=== PATIENT | male | born 1985 | race Hispanic/Latino ===

== ENCOUNTER 2022-12-22 09:17 | Observation (INO) | payer OTHER ==
--- OUTSIDE RECORDS SUMMARY | 2022-12-22 09:35 | XMS REPORT | Continuity of Care Document ---
:1985 Author Organization [facility] t Address [address] [facility] [address] [place] [address] Care Team Providers Name Role Phone SHIRLEY BRISENO Primary Care Physician Unavailable Tomek_T Attending Clinician Unavailable Acacia Savaeg Attending Clinician Unavailable FREDDIE ALFARO Attending Clinician Unavailable DR SHIRLEY BRISENO Attending Clinician Unavailable [phone] Attending Clinician Unavailable Tomsarah_T Admitting Clinician Unavailable Acacia Savage Admitting Clinician Unavailable DR SHIRLEY BRISENO Admitting Clinician Unavailable Payers Payer Name Policy Type Policy Number Effective Date Expiration Date [facility] [id number] Problems This patient has no known problems. Allergies, Adverse Reactions, Alerts Allergy Allergy Status Severity Reaction(s) Onset Inactive Treating Comm ents Source Name Type Date Date Clinician CEFTRIAX DA Active SEVERE Diarrhea El ONE [facility] Medications This patient has no known medications. Procedures This patient has no known procedures. Encounters Start End Encounter Admission Attending Care Care Encounter Source Date/Time Date/Time Type Type Clinicians Facility Department ID 2022 Outpatient ELCAMPO ELCAMPO [id number] El 08:42:32 [id number] [facility] 2022-12-03 Outpatient ELCAMPO ELCAMPO [id number] El 12:35:48 [id number] [facility] 2022-12-21 2022-12-21 Outpatient Tomek_T MMG MMG [id number] [place] 00:00:00 00:00:00 [id number] 2022-12-17 2022-12-17 Outpatient Tomek_T MMG [id number] [place] 00:00:00 00:00:00 [id number] 2022-12-12 2022-12-14 Inpatient ER Savage, [facility] [id number] [place] 01:21:00 11:44:00 Acacia [id number] [facility] 2022-12-11 2022-12-11 Emergency ER ANGELINA, [facility] [id number] [place] 22:02:00 22:02:00 FREDDIE [id number] [facility] 2022-12-03 2022-12-03 Outpatient SHIRLEY ALLRED [facility] [id number] 12:43:00 13:30:00 [id number] [facility] Results This patient has no known results.
[2022-12-22 10:19] LABS: Absolute Lymphocytes (CBC) 2.9 K/uL (0.7-4.9); Hematocrit 40.9 % (39.6-49.0); Lymphocytes % 25.8 % (15.3-44.8); MPV 7.9 fL (7.6-11.3); RBC Red Blood Cell Count 4.65 M/uL (4.33-5.43)
[2022-12-22 10:23] LABS: Protime INR 0.95
[2022-12-22 10:39] LABS: Albumin 3.1 g/dL (3.4-5.0); Bilirubin Total 0.4 mg/dL (0.2-1.0); Potassium 4.1 mEq/L (3.5-5.1); Protein, Total 8.4 g/dL (6.4-8.2)
--- NOTE | 2022-12-22 11:32 | RAD REPORT ---
EXAM DESCRIPTION: CT - Abdomen Pelvis W Contrast - 12/22/2022 10:36 am CLINICAL HISTORY: Abdominal pain COMPARISON: none. TECHNIQUE: Computed axial tomography of the abdomen pelvis was obtained. 100 cc Isovue-300 was admin istered intravenously. Oral contrast was not requested which limits evaluation of bowel and appendix All CT scans are performed using dose optimization technique as appropriate and may include automated exposure control or mA/KV adjustment according to patient size. FINDINGS: The liver, spleen, pancreas, adrenal and kidneys appear unremarkable. There is no evidence of diverticulitis. Gonzalez catheter within the bladder. Right and left external iliac lymph nodes 14 millimeters. Mild to moderate bilateral inguinal lymphad enopathy Small inguinal hernias contain fat Scrotal skin thickening IMPRESSION: Scrotal skin thickening presumably a cellulitis External iliac and inguinal lymphadenopathy most likely reactive in nature. The inguinal lymphadenopa thy should be monitored with physical examination over time. If it does not resolve then followup ult rasound would be recommended
--- NOTE | 2022-12-22 11:35 | RAD REPORT ---
EXAM DESCRIPTION: US - Scrotum Testicles - 12/22/2022 11:15 am CLINICAL HISTORY: Testicular pain and swelling COMPARISON: None FINDINGS: Right testicle measures 3 x 2 x 3 centimeters. Echotexture is homogeneous. Normal blood fl ow Left testicle measures c 4 x 2 x 2 entimeters. Echotexture is homogeneous. Normal blood flow The epididymides are normal in size and echotexture. Normal blood flow is seen. 3 millimeter right sp ermatocele Scrotal skin thickening with increased vascularity IMPRESSION: Scrotal skin thickening presumably a cellulitis
[2022-12-22 11:39] LABS: Urine Bilirubin NEGATIVE (Negative); Urine Blood Negative (Negative); Urine Clarity Clear (Clear); Urine Color Colorless (Yellow); Urine Glucose NEGATIVE (Negative); Urine Protein NEGATIVE (Negative); Urine Urobilinogen Normal (Normal); Urine pH 6.5 (5.0-7.0)
[2022-12-22] MEDS ORDERED: NA CHLORIDE 0.9% 250 ML ONE ×2 (11:51→20:41)
[2022-12-22] MEDS ORDERED: NA CHLORIDE 0.9% 100 ML ONE (11:51)
[2022-12-22] MEDS ORDERED: VANCOMYCIN 1 GM/VIAL ONE ×2 (11:51→20:41)
--- NOTE | 2022-12-22 11:51 | ER ---
Nurse's Notes [facility] Name: Mello Alcocer Age: 37 yrs Sex: Male : 1985 Arrival Date: 12/22/2022 Time: 09:17 Bed 14 Private MD: Diagnosis: Scrotal cellulitis Presentation: 12/22 09:28 Chief complaint: Patient states: DX with cellulitits at [facility] [place] 10 ss days ago and given Clindamycin. Pt is here today because it does not seem to be improving, and is now having trouble urinating. Pt states he believe he may need a urologist and [facility] does not have that specialty. Coronavirus screen: Client denies travel out of the [place] in the last 14 days. Ebola Screen: Patient denies exposure to infectious person. Patient denies travel to an Ebola-affected area in the 21 days before illness onset. Initial Sepsis Screen: Does the patient meet any 2 criteria? No. Patient's initial sepsis screen is negative. Does the patient have a suspected source of infection? No. Patient's initial sepsis screen is negative. Risk Assessment: Do you want to hurt yourself or someone else? Patient reports no desire to harm self or others. Onset of symptoms was December 08, 2022. 09:28 Method Of Arrival: Ambulatory ss 09:28 Acuity: ANAHI 3 ss Historical: - Allergies: 09:32 No Known Allergies; ss - Home Meds: 09:32 Clindamycin Oral [Active]; ss - PSHx: 09:32 Appendectomy; ss - Immunization history:: Client reports receiving the 2nd dose of the Covid vaccine. - Social history:: Smoking status: Patient reports the use of cigarette tobacco products, smokes one-half pack cigarettes per day. - Family history:: not pertinent. - Hospitalizations: : Patient was recently seen at. Screenin:31 [facility] ED Fall Risk Assessment (Adult) History of falling in the last 3 months, kc6 including since admission No falls in past 3 months (0 pts) Confusion or Disorientation No (0 pts) Intoxicated or Sedated No (0 pts) Impaired Gait No (0 pts) Mobility Assist Device Used No (0 pt) Altered Elimination No (0 pt) Score/Fall Risk Level 0 - 2 = Low Risk Oriented to surroundings, Maintained a safe environment, Educated pt \T\ family on fall prevention, incl call for assistance when getting out of bed, Assessed \T\ reinforced patient's understanding of fall precautions, Hourly rounding (assess needs \T\ fall precautionary measures) done. Abuse screen: Denies threats or abuse. Denies injuries from another. Nutritional screening: No deficits noted. Tuberculosis screening: No symptoms or risk factors identified. Assessment: 10:32 General: Appears in no apparent distress. comfortable, Behavior is calm, cooperative, kc6 appropriate for age. Pain: Complains of pain in scrotum, penis Pain does not radiate. Neuro: Hernández Agitation-Sedation Scale (RASS): 0 - Alert and Calm Level of Consciousness is awake, alert, obeys commands, Oriented to person, place, time, situation, Appropriate for age. Cardiovascular: Heart tones S1 S2 present Capillary refill < 3 seconds. Respiratory: Airway is patent Trachea midline Respiratory effort is even, unlabored, Respiratory pattern is regular, symmetrical. GI: No signs and/or symptoms were reported involving the gastrointestinal system. : Urine is clear, Swelling noted at urinary meatus on penis on scrotum Reports inability to void, Scrotal pain: sudden onset. EENT: No signs and/or symptoms were reported regarding the EENT system. Derm: No signs and/or symptoms reported regarding the dermatologic system. Skin is intact, Skin is pink, warm \T\ dry. Musculoskeletal: No signs and/or symptoms reported regarding the musculoskeletal system. Circulation, motion, and sensation intact. Capillary refill < 3 seconds, Range of motion: intact in all extremities. 11:32 Reassessment: Patient appears in no apparent distress at this time. No changes from kc6 previously documented assessment. Patient and/or family updated on plan of care and expected duration. Pain level reassessed. Patient is alert, oriented x 3, equal unlabored respirations, skin warm/dry/pink. 12:32 Reassessment: Patient appears in no apparent distress at this time. No changes from kc6 previously documented assessment. Patient and/or family updated on plan of care and expected duration. Pain level reassessed. Patient is alert, oriented x 3, equal unlabored respirations, skin warm/dry/pink. 13:32 Reassessment: Patient appears in no apparent distress at this time. No changes from kc6 previously documented assessment. Patient and/or family updated on plan of care and expected duration. Pain level reassessed. Patient is alert, oriented x 3, equal unlabored respirations, skin warm/dry/pink. 14:32 Reassessment: Patient appears in no apparent distress at this time. No changes from kc6 previously documented assessment. Patient and/or family updated on plan of care and expected duration. Pain level reassessed. Patient is alert, oriented x 3, equal unlabored respirations, skin warm/dry/pink. 15:00 Reassessment: pt appears to have voided approximately 2,800 mL of clear yellow to carroll.kc6 15:32 Reassessment: Patient appears in no apparent distress at this time. No changes from kc6 previously documented assessment. Patient and/or family updated on plan of care and expected duration. Pain level reassessed. Patient is alert, oriented x 3, equal unlabored respirations, skin warm/dry/pink. 16:32 Reassessment: Patient appears in no apparent distress at this time. No changes from kc6 previously documented assessment. Patient and/or family updated on plan of care and expected duration. Pain level reassessed. Patient is alert, oriented x 3, equal unlabored respirations, skin warm/dry/pink. 17:32 Reassessment: Patient appears in no apparent distress at this time. No changes from kc6 previously documented assessment. Patient and/or family updated on plan of care and expected duration. Pain level reassessed. Patient is alert, oriented x 3, equal unlabored respirations, skin warm/dry/pink. 18:32 Reassessment: Patient appears in no apparent distress at this time. No changes from kc6 previously documented assessment. Patient and/or family updated on plan of care and expected duration. Pain level reassessed. Patient is alert, oriented x 3, equal unlabored respirations, skin warm/dry/pink. Vital Signs: 09:28 BP 101 / 63; Pulse 74; Resp 16; Temp 98.2(TE); Pulse Ox 98% on R/A; Weight 156.04 kg; ss Height 5 ft. 8 in. ; Pain 6/10; 11:38 BP 125 / 80; Pulse 85; Resp 16 S; Pulse Ox 95% on R/A; kc6 13:13 BP 116 / 72; Pulse 72; Resp 16 S; Pulse Ox 97% ; kc6 14:03 BP 109 / 67; Pulse 64; Resp 18 S; Pulse Ox 96% on R/A; kc6 16:27 BP 102 / 68; Pulse 69; Resp 19 S; Pulse Ox 96% on R/A; Pain 0/10; kc6 18:45 BP 119 / 75; Pulse 73; Resp 18 S; Pulse Ox 96% on R/A; kc6 09:28 Body Mass Index 52.30 (156.04 kg, 172.72 cm) ss 09:28 Pain Scale: Adult ss 16:27 Pain Scale: Adult kc6 ED Course: 09:21 Patient arrived in ED. ts1 09:25 Escobar Hernandez MD is Attending Physician. rn 09:32 Triage completed. ss 09:32 Arm band placed on left wrist. ss 09:34 Alanis Martinez RN is Primary Nurse. kc6 10:02 Radiology exam delayed due to nurse told to come back--. hr 10:31 Coud inserted, using sterile technique, 18 Fr. Returned clear yellow urine. To gravity kc6 drainage. Clamped. Urine specimen collected. Patient tolerated well. Inserted saline lock: 20 gauge in right wrist, using aseptic technique. Blood collected. 10:32 Patient has correct armband on for positive identification. Placed in gown. Bed in low kc6 position. Call light in reach. Side rails up X2. Adult w/ patient. 10:37 CT Abd/Pelvis - IV Contrast Only In Process Unspecified. EDMS 11:17 US Scrotum Testicles In Process Unspecified. EDMS 11:50 Derrek Vail MD is Hospitalizing Provider. rn 12/23 07:34 No provider procedures requiring assistance completed. Patient admitted, IV remains in ko1 place. Administered Medications: 12/22 11:53 Drug: Piperacillin-Tazobactam IVPB 3.375 grams Route: IVPB; Infused Over: 60 mins; kc6 Site: right wrist; 12:53 Follow up: Response: No adverse reaction; IV Status: Completed infusion; IV Intake: kc6 100ml 12:24 Drug: vancoMYCIN IVPB 1 grams Route: IVPB; Infused Over: 2 hrs; Site: right wrist; kc6 14:03 Follow up: Response: No adverse reaction; IV Status: Completed infusion; IV Intake: kc6 250ml Medication: 12/23 07:38 VIS not applicable for this client. ko1 Intake: 12/22 12:53 IV: 100ml; Total: 100ml. kc6 14:03 IV: 250ml; Total: 350ml. kc6 Outcome: 11:50 Decision to Hospitalize by Provider. sherie 12/23 07:38 Admitted to Med/surg accompanied by tech, via wheelchair, room 221, with chart, Report sherri called to Franca Condition: stable Instructed on the need for admit. 09:11 Patient left the ED. [facility] Signatures: Dispatcher [employer] EDMS Susan Bell Roman, MD MD rn Smirch, Shelby, RN RN ss Campbell, Kaitlyn, RN RN kc6 Naomi Blair RN RN ko1 Mu Marquez [facility] Mylene Grullon PAS PAS ts1 Corrections: (The following items were deleted from the chart) 12/22 10:59 10:58 BP 136 / 93; Pulse 88bpm; Resp 22bpm; Spontaneous; Pulse Ox 96% BiPAP; kc6 kc6
--- NOTE | 2022-12-22 11:51 | EDPHYS ---
Physician Documentation [facility] Name: Mello Alcocer Age: 37 yrs Sex: Male : 1985 Arrival Date: 12/22/2022 Time: 09:17 Bed 14 Private MD: ED Physician Escobar Hernandez HPI: 12/22 11:42 This 37 yrs old Male presents to ER via Ambulatory with complaints of Scrotal rn Pain, Acute Onset. 11:42 The patient presents with scrotal pain, swelling, tenderness. Onset: The rn symptoms/episode began/occurred 2 week(s) ago. Modifying factors: The symptoms are alleviated by nothing, the symptoms are aggravated by pressure. Associated signs and symptoms: Pertinent negatives: fever. Severity of symptoms: At their worst the symptoms were moderate, in the emergency department the symptoms are unchanged. The patient has experienced a previous episode. The patient has been recently seen by a physician:. Pt reports recent admission at [facility] for scrotal cellulitis, discharged with abx, was getting better but now worsened over last day or so. + increased scrotal and penile swelling. No fever. No vomiting. . Historical: - Allergies: 09:32 No Known Allergies; ss - Home Meds: 09:32 Clindamycin Oral [Active]; ss - PSHx: 09:32 Appendectomy; ss - Immunization history:: Client reports receiving the 2nd dose of the Covid vaccine. - Social history:: Smoking status: Patient reports the use of cigarette tobacco products, smokes one-half pack cigarettes per day. - Family history:: not pertinent. - Hospitalizations: : Patient was recently seen at. ROS: 11:42 Constitutional: Negative for fever, chills, and weight loss, Cardiovascular: Negative rn for chest pain, palpitations, and edema, Respiratory: Negative for shortness of breath, cough, wheezing, and pleuritic chest pain, Abdomen/GI: Negative for abdominal pain, nausea, vomiting, diarrhea, and constipation, Back: Negative for injury and pain, : + scrotal and penile swelling/pain MS/Extremity: Negative for injury and deformity, Skin: Negative for injury, rash, and discoloration, Neuro: Negative for headache, weakness, numbness, tingling, and seizure. Exam: 11:42 Constitutional: Overweight male, no acute distress Head/Face: Normocephalic, rn atraumatic. Cardiovascular: Regular rate and rhythm. No pulse deficits. Respiratory: No increased work of breathing, no retractions or nasal flaring. Abdomen/GI: Soft, non-tender Male : + thickened scrotal skin no fluctuance, + edema of penis, no swelling or discoloration of head of penis. No abscess. No tenderness or discoloration of perineum. Vital Signs: 09:28 BP 101 / 63; Pulse 74; Resp 16; Temp 98.2(TE); Pulse Ox 98% on R/A; Weight 156.04 kg; ss Height 5 ft. 8 in. ; Pain 6/10; 11:38 BP 125 / 80; Pulse 85; Resp 16 S; Pulse Ox 95% on R/A; kc6 13:13 BP 116 / 72; Pulse 72; Resp 16 S; Pulse Ox 97% ; kc6 14:03 BP 109 / 67; Pulse 64; Resp 18 S; Pulse Ox 96% on R/A; kc6 16:27 BP 102 / 68; Pulse 69; Resp 19 S; Pulse Ox 96% on R/A; Pain 0/10; kc6 18:45 BP 119 / 75; Pulse 73; Resp 18 S; Pulse Ox 96% on R/A; kc6 09:28 Body Mass Index 52.30 (156.04 kg, 172.72 cm) ss 09:28 Pain Scale: Adult ss 16:27 Pain Scale: Adult kc6 MDM: 09:25 Patient medically screened. rn 11:42 Differential diagnosis: scrotal cellulitis, abscess, lymphadenitis. Data reviewed: rn vital signs, nurses notes, lab test result(s), radiologic studies, CT scan, ultrasound, and as a result, I will admit patient. Consideration of Admission/Observation Patient was admitted/placed on observation. Escalation of care including admission/observation considered. Management of patient was discussed with the following: Hospitalist: . Counseling: I had a detailed discussion with the patient and/or guardian regarding: the historical points, exam findings, and any diagnostic results supporting the discharge/admit diagnosis, lab results, radiology results, the need for further work-up and treatment in the hospital. ED course: No abscess or fluctuance on exam or imaging, will admit to hospitalist service for scrotal cellulitis. . 12/22 09:46 Order name: Blood Culture Adult (2) rn 12/22 09:46 Order name: CBC with Diff; Complete Time: 11:40 rn 12/22 09:46 Order name: CMP; Complete Time: 11:40 rn 12/22 09:46 Order name: Lactate w/ 2H reflex if indic.; Complete Time: 11:40 rn 12/22 09:46 Order name: Protime (+inr); Complete Time: 11:40 rn 12/22 09:46 Order name: Ptt, Activated; Complete Time: 11:40 rn 12/22 09:46 Order name: Urinalysis w/ reflexes; Complete Time: 11:40 rn 12/23 07:19 Order name: CBC with Automated Diff EDMS 12/23 07:31 Order name: Basic Metabolic Panel EDMS 12/23 07:48 Order name: Hemoglobin A1c EDMD 12/22 09:46 Order name: US Scrotum Testicles; Complete Time: 11:40 rn 12/22 09:46 Order name: CT Abd/Pelvis - IV Contrast Only; Complete Time: 11:40 rn 12/22 09:46 Order name: EKG; Complete Time: 09:47 rn 12/22 09:46 Order name: Accucheck; Complete Time: 10:30 rn 12/22 09:46 Order name: Cardiac monitoring; Complete Time: 10:30 rn 12/22 09:46 Order name: EKG - Nurse/Tech; Complete Time: 10:30 rn 12/22 09:46 Order name: IV Saline Lock - Large Bore; Complete Time: 10:30 rn 12/22 09:46 Order name: Labs collected and sent; Complete Time: 10:30 rn 12/22 09:46 Order name: O2 Per Protocol; Complete Time: 10:30 rn 12/22 09:46 Order name: O2 Sat Monitoring; Complete Time: 10:30 rn 12/22 09:46 Order name: Vital Signs; Complete Time: 10:30 rn 12/22 09:46 Order name: Gonzalez; Complete Time: 10:30 rn Administered Medications: 11:53 Drug: Piperacillin-Tazobactam IVPB 3.375 grams Route: IVPB; Infused Over: 60 mins; kc6 Site: right wrist; 12:53 Follow up: Response: No adverse reaction; IV Status: Completed infusion; IV Intake: kc6 100ml 12:24 Drug: vancoMYCIN IVPB 1 grams Route: IVPB; Infused Over: 2 hrs; Site: right wrist; kc6 14:03 Follow up: Response: No adverse reaction; IV Status: Completed infusion; IV Intake: kc6 250ml Disposition Summary: 12/22/22 11:50 Hospitalization Ordered Hospitalization Status: Inpatient Admission rn Provider: Derrek Vail rn Condition: Stable rn Problem: an ongoing problem rn Symptoms: have improved rn Bed/Room Type: Standard rn Location: Telemetry/MedSurg (Inpatient)(12/23/22 05:52) eb1 Room Assignment: [facility](12/23/22 05:52) eb Diagnosis - Scrotal cellulitis rn Forms: - Medication Reconciliation Form rn - SBAR form rn Signatures: Dispatcher [employer] EDEscobar Mena MD MD rn Smirch, Shelby RN RN Mattie Engel RN RN eb1 Alanis Martinez RN RN kc6 Corrections: (The following items were deleted from the chart) 18:49 11:50 Telemetry/MedSurg (Inpatient) rn eb1 18:49 11:50 rn eb1 12/23 05:52 12/22 18:49 [facility] ER HOLD eb1 eb1 12/23 05:52 12/22 18:49 ERHOLD- eb1 eb1
[2022-12-22] MEDS ORDERED: PIPERACIL/TAZO 3.375 GM VIAL IV ONE (11:52)
--- NOTE | 2022-12-22 19:06 | P.HP ---
Certification for Inpatient Patient admitted to: Inpatient With expected LOS: >2 Midnights Patient will require the following post-hospital care: None Practitioner: I am a practitioner with admitting privileges, knowledge of patient current condition, hospital course, and medical plan of care. Services: Services provided to patient in accordance with Admission requirements found in Title 42 Section 412.3 of the Code of Federal Regulations Patient History Date of Service: 12/22/22 Reason for admission: Scrotal cellulitis History of Present Illness: 37-year-old male with history of hidradenitis suppurativa presents emergency department chief complaint of scrotal swelling. He reports this began approximate 3 weeks ago at which time he was seen by urgent care and prescribed oral antibiotics, he did not notice any improvement so he went to [facility] where he stayed from December 18 to December 21 on IV antibiotics, he was subsequently discharged with doxycycline, he noticed worsening throughout the day today that reason came back to the emergency department. He is evaluated in the emergency room his labs were significant for leukocytosis white blood cell 11.1 sodium 134 lactic acid 0.6 blood cultures obtained in the emergency department patient was started on vancomycin/Zosyn. CT and ultrasound both consistent with scrotal cellulitis without signs of free air/gas/abscess currently. Patient will be admitted for further evaluation and management. 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 moist/pink, EOMI, Sclerae nonicteric Neck: Supple, 2+ carotid pulse no bruit, No LAD, Without JVD or thyroid abnormality Respiratory: Clear to auscultation bilaterally, Normal air movement Cardiovascular: No edema, Regular rate/rhythm, Normal S1 S2 Capillary refill: <2 Seconds Gastrointestinal: Normal bowel sounds, No tenderness Musculoskeletal: No tenderness Integumentary: No rashes Neurological: Normal gait, Normal speech, Normal strength at 5/5 x4 extr, Normal tone, Normal affect Lymphatics: No axilla or inguinal lymphadenopathy Urinary: Gonzalez catheter, Other (Scrotal/glans edema, erythema, tenderness) External genitalia: Edema, Tenderness - Studies Laboratory Data (last 24 hrs) 12/22/22 10:06: PT 10.4, INR 0.95, APTT 31.8 12/22/22 10:06: Sodium 134 L, Potassium 4.1, BUN 11, Creatinine 0.82, Glucose 102, Total Bilirubin 0.4, AST 18, ALT 55, Alkaline Phosphatase 93 12/22/22 10:06: WBC 11.10 H, Hgb 14.1, Hct 40.9, Plt Count 303 Assessment and Plan - Plan Assessment: Scrotal cellulitis failed outpatient management Hidradenitis suppurativa Obesity Tobacco use disorder Plan: Scrotal cellulitis failed outpatient management Urology consult, IV antibiotics with Vanc/Zosyn, blood cultures obtained. No SIRS criteria present currently. Patient has been on oral antibiotics followed by recent hospitalization with IV antibiotics, discharged on doxycycline p.o. still with significant symptoms/cellulitis. Hidradenitis suppurativa Continue as above. Obesity Counseled on need for lifestyle changes. Tobacco use disorder Counseled on need for tobacco cessation, NicoDerm patches supplied. DVT PPX:Lovenox Code status:Full Discharge Plan: Home Plan to discharge in: 72 Hours - Advance Directives Does patient have a Living Will: No Does patient have a Durable POA for Healthcare: No - Code Status/Comfort Care Code Status Assessed: Yes (Full code) Critical Care: No Time Spent Managing Pts Care (In Minutes): 70
[2022-12-22] MEDS ORDERED: ONDANSETRON 4 MG/2 ML VIAL IV PRN (19:28)
[2022-12-22] MEDS ORDERED: ACETAMINOPHEN 500 MG TAB PO PRN (19:28)
[2022-12-22] MEDS ORDERED: HYDROCODONE/APAP 7.5/325 MG TAB PO PRN (19:28)
[2022-12-22] MEDS ORDERED: MORPHINE 2 MG/ML SYR IV PRN (19:28)
[2022-12-22] MEDS: Ringers Lactate 1,000 ML IV SCH (19:50)
[2022-12-22] MEDS ORDERED: VANCOMYCIN 1 GM in NA CHLORIDE 0.9% 250 ML IVPB ONE (20:00)
[2022-12-22] MEDS ORDERED: Ringers Lactate 1,000 ML IV ONE (20:41)
--- NOTE | 2022-12-22 20:45 | P.CNS ---
Date of Consult: 12/22/22 Reason for Consult: Suspected Donny's Requesting Physician: Derrek Vail Chief Complaint: Scrotal cellulitis History of Present Illness: 37-year-old gentleman with diagnosis of hidradenitis suppurativa that is involved his inner thighs over the last 6 months presents with a 2-month history of perineal abscesses. These have been treated as an outpatient with antimicrobials from [facility], which he explains he was given on 2 different occasions for an ear infection, and most recently a month ago, Bactrim. Each time, the perineal lesions would drain associated with the antimicrobial use. During 1 of those hiatus between antimicrobials, about 2 weeks ago, he was admitted to [facility] because of worsening induration in the perineal region, and he was treated with vancomycin, according to his recollection, and eventually discharged on clindamycin 150 mg p.o. twice daily. Despite remaining on that dose of antimicrobial, about 24 hours ago, he developed significant swelling of the foreskin, which caused him a significant degree of concern. As a result, he presented to [facility] emergency department for evaluation. He denied any associated fever or chills, and he was not having any significant pain or tenderness of note. Past medical history: Suspected hidradenitis suppurativa. He denies history of diabetes. 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 Mild tenderness in the right inguinal/infrapubic region without crepitus or erythema noted. Genitalia: Uncircumcised and edematous prepuce without tenderness, erythema or crepitus. Moderate phimosis, but glans partially visible with orthotopic meatus patent with urethral Gonzalez catheter in place draining clear yellow urine. Scrotum edematous, but without crepitus or tenderness and no erythema. Testes bilaterally descended without mass and nontender. No epididymal tenderness noted. No inner thigh collections but evidence of prior skin lesions consistent with hidradenitis suppurativa, healed. Perineal region with 2 open/incised and minimally draining areas of clear fluid completely nontender with only minimal induration. No drainable collections palpable, though exam potentially limited due to his morbid obesity. Lying in a stretcher and able to move all extremities with ease. WBC 11.1, hemoglobin 14.1, platelets 303, creatinine 0.82, UA micro negative CT abdomen and pelvis with IV contrast: I reviewed the images in detail. No renal, ureteral, or bladder abnormalities noted. Air in the bladder, likely from Gonzalez catheter in place. No air noted within the soft tissues of the infrapubic/inguinal regions bilaterally or in the perineal region observable. Mild right hydrocele appreciated, likely reactive. No drainable collection. Scrotal ultrasound: I reviewed these images also in detail, and no air observed within the wall of the scrotum. No increased flow to the testes or epididymides to suggest epididymoorchitis. Assessment and recommendation: 37-year-old gentleman with hidradenitis suppurativa of the inner thighs with evident resolving/draining perineal abscesses now with reactive swelling of the scrotum and prepuce with small right reactive hydrocele. -Given his active use of antimicrobials over the last several weeks prior to presentation today, culture results unlikely to be revealing. As a result, I recommend request results of any cultures taken from [facility] for our review. My assumption from their treatment recommendation, which included doxycycline on his discharge paperwork but ultimately clindamycin given, as that he was found to have MRSA likely in the perineal wounds. Further, at 150 mg twice daily for a gentleman his size, he was significantly underdosed with the clindamycin. As a result, I recommend the following: -Remove the urethral Gonzalez catheter and give the patient a voiding trial, unless upon initial placement of the catheter, there was evidence of significant volume (> 150 cc) retained urine. -Bactrim DS twice daily x21 days preferred for both gram-positive and gram- negative coverage as well as MRSA, but if resistance documented, certainly may continue clindamycin, but recommend increased dose to 300-450 mg every 6-8 hours. If clindamycin continued, would also add Cipro for a total of an additional 14 to 21 days. -General surgical outpatient consultation for endoscopy to rule out [id number] as the source of recurrent perineal abscesses -Follow-up with me in the urology clinic prior to completion of antimicrobial therapy within 3 weeks for cystoscopic evaluation to rule out urethral disease/stricture and to perform DANIELLE -Interval follow-up next week to evaluate progress in healing with antimicrobial and rule out development of crepitus/Donny's Allergies No Known Allergies Allergy (Unverified 12/22/22 19:28) - Past Medical/Surgical History Diabetic: No -: Hidradenitis suppurativa -: Tobacco abuse -: Appendectomy Psychosocial/ Personal History: 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, lives at home with his family - Social History Alcohol use: No CD- Drugs: No Caffeine use: Yes Place of Residence: Home Physical Examination Laboratory Data (last 24 hrs) 12/22/22 10:06: PT 10.4, INR 0.95, APTT 31.8 12/22/22 10:06: Sodium 134 L, Potassium 4.1, BUN 11, Creatinine 0.82, Glucose 102, Total Bilirubin 0.4, AST 18, ALT 55, Alkaline Phosphatase 93 12/22/22 10:06: WBC 11.10 H, Hgb 14.1, Hct 40.9, Plt Count 303 - Problems (1) Abscess of multiple sites of perineum Current Visit: Yes Status: Acute (2) Penile edema Current Visit: Yes Status: Acute Conclusions/Impression: See HPI Critical Care: No Time Spent Managing Pts care (In Minutes): 45
[2022-12-22] MEDS: NICOTINE 14 MG/PAT TD SCH (21:00)
[2022-12-22] MEDS ORDERED: NICOTINE 14 MG/PAT TD ONE (21:14)
[2022-12-22 22:53] VITALS: BMI 49.2
[2022-12-22 22:59] VITALS: O2SAT 96
[2022-12-23] MEDS ORDERED: PIPER TAZO 3.375 GM in NA CHLORIDE 0.9% 100 ML IV SCH (01:00)
[2022-12-23] MEDS ORDERED: POTASSIUM 25 MEQ EFFERV TAB ONE (03:39)
[2022-12-23] MEDS: Ringers Lactate 1,000 ML IV SCH (05:28)
[2022-12-23 07:16] LABS: Absolute Lymphocytes (CBC) 2.5 K/uL (0.7-4.9); Hematocrit 41.7 % (39.6-49.0); MCV 88.6 fL (80-100); MPV 8.6 fL (7.6-11.3); RBC Red Blood Cell Count 4.71 M/uL (4.33-5.43)
[2022-12-23] MEDS ORDERED: Ringers Lactate 1,000 ML IV ONE (07:24)
[2022-12-23] MEDS ORDERED: CEFTRIAXONE 1,000 MG in NA CHLORIDE 0.9% 50 ML IVPB SCH (09:00)
[2022-12-23] MEDS ORDERED: ENOXAPARIN 40 MG/0.4 ML SQ SCH (09:00)
[2022-12-23] MEDS ORDERED: VANCOMYCIN 2 GM in NA CHLORIDE 0.9% 500 ML IVPB SCH (09:00)
[2022-12-23] MEDS: NICOTINE 14 MG/PAT TD SCH (09:30)
[2022-12-23 12:56] VITALS: BP 122/60; TEMP 98.3
[2022-12-23] MEDS ORDERED: SMZ./TMP. 800/160 MG TABLET PO SCH (13:30)
--- NOTE | 2022-12-23 13:54 | P.DS ---
Admission Date: 12/22/22 Discharge Date: 12/23/22 Disposition: ROUTINE DISCHARGE Discharge Condition: GOOD Reason for Admission: Scrotal cellulitis Consultations: 1. Urology Hospital Course: DIAGNOSES: # Scrotal Cellulitis with Bilateral Ingiunal/Iliac Lymphadenopathy # Hidradenitis Suppurativa # Morbid Obesity - BMI 49.3 kg/m2 # Tobacco Use Disorder HOSPITAL COURSE: Mr. Mello Alcocer is a 37-year-old male with a past medical history significant for hidradenitis suppurativa who was admitted to the [facility] on 12/22/2022 for scrotal cellulitis. He was admitted to the Medicine service. He was recently admitted to the [facility] for similar symptoms. He was sent home on clindamycin. Dr. Savage, who saw him at [place], was contacted. He provided a urine culture from 12/14/2022 which revealed, "rare epithelial cells, moderate WBC, no organisms seems." Here, his CT abdomen/pelvis revealed, "scrotal skin thickening presumably a cellulitis. External iliac and inguinal lymphadenopathy most likely reactive in nature. The inguinal lymphadenopathy should be monitored with physical examination over time. If it does not resolve then followup ultrasound would be recommended." His scrotal ultrasound revealed, "scrotal skin thickening presumably a cellulitis." Urology was consulted and he was evaluated by Dr. Last. He believes cellulitis had not improved due to underdosing of clindamycin. Dr. Last recommended discharge home with 21 days of sulfamethoxazole-trimethoprim. He will follow-up with him in clinic. Additionally, he was noted to have bilateral inguinal and iliac adenopathy. Although this could be related to his scrotal cellulitis, he was counseled on the possibility that the lymphadenopathy could be secondary to an underlying malignancy. He was advised to follow-up with his PCP regarding this matter. He verbalized understanding and agreed to make this follow-up appointment. On 12/22/2022, he was seen on rounds and deemed medically stable for discharge. He was discharged with instructions to schedule follow-up appointments with his PCP (Dr. Oviedo), with Urology (Dr. Last), and with General Surgery (Dr. Metz). He was provided a prescription sulfamethoxazole-trimethoprim. He was advised to have his BMP (specifically potassium and creatinine) checked with his PCP in about 1 week. He and his family members were given the opportunity to ask questions and reported no further questions. Furthermore, all questions were answered to the best of my ability. A copy of this discharge summary will be sent to the above providers to facilitate continuity of care. Today, I personally spent 25 minutes on his case, of which greater than 50% of the time was spent in patient education, counseling, and coordination of care as described above. Vital Signs/Physical Exam: Temp Pulse Resp BP Pulse Ox 98.3 F 83 16 122/60 97 12/23/22 12:00 12/23/22 12:00 12/23/22 12:00 12/23/22 12:00 12/23/22 12:00 General: Alert, In no apparent distress, Oriented x3 HEENT: Atraumatic, Mucous membr. moist/pink, Sclerae nonicteric Neck: JVD not distended Respiratory: Clear to auscultation bilaterally, Normal air movement Cardiovascular: No edema, Regular rate/rhythm, Normal S1 S2, No gallops, No rubs, No murmurs Gastrointestinal: Normal bowel sounds, Soft and benign, Non-distended, No tenderness, No rebound, No guarding Musculoskeletal: No clubbing Integumentary: Erythema (scrotal, improved) Neurological: Normal speech, Normal affect External genitalia: Edema (penile, mild) Other Physical/Emotional Findings: Major General present for exam: Batool Lundberg RN Laboratory Data at Discharge: WBC 9.80 thou/uL (4.3-10.9) 12/23/22 06:32 Hgb 14.4 g/dL (13.6-17.9) 12/23/22 06:32 Hct 41.7 % (39.6-49.0) 12/23/22 06:32 Plt Count 287 thou/uL (152-406) 12/23/22 06:32 PT 10.4 SECONDS (9.5-12.5) 12/22/22 10:06 INR 0.95 12/22/22 10:06 APTT 31.8 SECONDS (24.3-36.9) 12/22/22 10:06 Sodium 134 mEq/L (136-145) L 12/23/22 06:32 Potassium 4.0 mEq/L (3.5-5.1) 12/23/22 06:32 BUN 12 mg/dL (7-18) 12/23/22 06:32 Creatinine 0.75 mg/dL (0.70-1.30) 12/23/22 06:32 Glucose 148 mg/dL (74-106) H 12/23/22 06:32 Total Bilirubin 0.4 mg/dL (0.2-1.0) 12/22/22 10:06 AST 18 U/L (15-37) 12/22/22 10:06 ALT 55 U/L (16-61) 12/22/22 10:06 Alkaline Phosphatase 93 U/L (45-117) 12/22/22 10:06 Home Medications: Smz./Tmp. [Bactrim Ds 800 MG/160 MG*] 1 tab PO BID 21 Days #42 tab 12/23/22 New Medications: Smz./Tmp. [Bactrim Ds 800 MG/160 MG*] 1 tab PO BID 21 Days #42 tab Physician Discharge Instructions: 1. Please call and schedule a follow-up appointment with your PCP (Dr. Oviedo) in 3-5 days - Please have your PCP repeat your potassium and creatinine levels at this appointment - As we discussed, please make sure to follow-up the lymph nodes in your groin with your PCP 2. Please call and schedule a follow-up appointment with urology (Dr. Last) in 5-7 days 3. Please call and schedule a follow-up appointment with General Surgery (Dr. Metz) in 5-7 days - Please discuss your hidradenitis suppurativa with him at this appointment Diet: AHA Activity: Ad ailyn Followup: Nitesh Oviedo MD [Primary Care Provider] - Sal Last [ACTIVE - CAN ADMIT] - Juan C Metz MD [ACTIVE - CAN ADMIT] - Time spent managing pt's care (in minutes): 25
--- NOTE | 2022-12-27 12:46 | EKG ---
Test Date: 2022-12-22 Test Time: 10:05:55 Marketing Programs Manager: PREMA MEASUREMENT RESULTS: Intervals: Rate: 67 MN: 160 QRSD: 92 QT: 380 QTc: 401 [place]: P: 47 MN: 160 QRS: -24 T: 19 INTERPRETIVE STATEMENTS: Normal sinus rhythm Normal ECG No previous ECG available for comparison Electronically Signed On 12-27-22 12:38:02 CDT by Julio Mendieta
== END 2022-12-23 15:47 | disposition home or self-care (01) ==
LOC: ER 09:17 → ERHOLD 18:24 → INTOOBSV 18:24 → 2ND 12-23 06:06
PROVIDERS: ADMIT Internal Medicine; ATTEND Internal Medicine
DX: N49.2 Inflammatory disorders of scrotum (principal); L02.215 Cutaneous abscess of perineum; N48.89 Other specified disorders of penis; K40.20 Bilateral inguinal hernia, without obstruction or gangrene, not specified as recurrent; L73.2 Hidradenitis suppurativa; R59.0 Localized enlarged lymph nodes; E66.01 Morbid (severe) obesity due to excess calories; F17.210 Nicotine dependence, cigarettes, uncomplicated; Z68.42 Body mass index [BMI] 45.0-49.9, adult
CPT/HCPCS: 87040 ×2; 85025 ×2; 80048; 36415; 85610; 83605; 85730; 81003; 83036; 80053; 74177; 76870; Q9967; J2543; J1650; J7120 ×2; J7050 ×2; J7040; J0696; G0378 ×4; 93005

== ENCOUNTER 2023-01-11 10:54 | Day surgery (SDC) | payer OTHER, SELFPAY ==
[2023-01-11] MEDS ORDERED: Ringers Lactate 1,000 ML IV ONE (11:11)
[2023-01-11] MEDS ORDERED: Gentamicin Inj 320 MG in NA CHLORIDE 0.9% 100 ML IV ONE (11:15)
[2023-01-11] MEDS ORDERED: CLINDAMYCIN 600MG/D5W 50 ML IV ONE (11:15)
[2023-01-11] MEDS ORDERED: MIDAZOLAM HCL 2 MG/2 ML INJ ONE (11:56)
[2023-01-11] MEDS ORDERED: FENTANYL CITR 100 MCG/2 ML ONE (11:56)
[2023-01-11] MEDS ORDERED: propofoL 200 MG/20 ML VIAL IV ONE (11:56)
[2023-01-11] MEDS ORDERED: LIDOCAINE 2% MPF 5 ML VIAL ONE (11:57)
[2023-01-11] MEDS ORDERED: ONDANSETRON 4 MG/2 ML VIAL ONE (11:57)
[2023-01-11] MEDS ORDERED: dexAMETHasone 10 MG/ML VIAL ONE (11:58)
[2023-01-11] MEDS ORDERED: KETOROLAC 30 MG/ML INJ ONE (12:05)
[2023-01-11] MEDS ORDERED: HYDROMORPHONE HCL 1 MG/ML INJ ONE (12:06)
[2023-01-11] MEDS ORDERED: LIDOCAINE 1% MPF 30 ML VIAL ONE (12:07)
[2023-01-11] MEDS ORDERED: BUPIVACAINE 0.5% PF 10 ML VIAL ONE (12:07)
[2023-01-11] MEDS ORDERED: METHYLENE BLUE 0.5% 10 ML AMP ONE (12:42)
--- NOTE | 2023-01-11 13:00 | P.OP ---
Preoperative diagnosis: Perineal Abscess Postoperative diagnosis: Perineal Abscess Primary procedure: Exam under anesthesia Anesthesia: GETA + Local Estimated blood loss: <1cc Specimen: none Findings: No Perianal / Perirectal Fistula Noted, severe hidradenitis suppuritiva Complications: None Transferred to: Recovery Room Condition: Good
--- NOTE | 2023-01-11 13:39 | CON ---
Date of Consultation: 01/11/2023 Brief History Of Present Illness: Patient is a 37-year-old male seen by Dr. Last, please see Dr. Last' note for full details regarding his aspect of the procedure, who presented to Dr. Last wi th a perineal abscess and severe hidradenitis suppurativa. He was taken to the operating room for a planned incision and drainage of a perineal abscess and it was noted that it was in close proximity t o the perirectal skin which is an exacerbation from previous examinations. As such, I was requested to come and take a look to see if there was possible fistulous connection to the perianal/perirectal tissue. As such, I ultimately anesthetized the skin with 0.25% Marcaine and injected methylene blue using a 20-gauge angiocatheter into an abscess cavity that was most proximal to the perianal skin. A t this point, methylene blue was injected into the tract and ultimately I placed sequential larger an oscope into the anus at this point, inspected for any evidence of fistulous connections or methylene blue, which was not noted at this time. I therefore determined that the patient had no evidence of a perianal fistula based on the examination at this point, and I concluded my portion of the examinati on under anesthesia. LILIAN/ABRAHAM Voice ID: [id number] Report ID: [id number]
--- NOTE | 2023-01-11 13:51 | OP ---
Date of Procedure: 01/11/2023 Surgeon: Ruslan Bates MD, Preoperative Diagnosis: Perianal abscess. Postoperative Diagnosis: Perianal abscess. Procedure Performed: Exam under anesthesia. Anesthesia: General endotracheal plus local with 0.25% Marcaine. Estimated Blood Loss: Less than 1 cc. Specimen: None. Findings: No perianal/perirectal fistula noted, and severe hidradenitis suppurativa was noted in the patient's perineal region. Complications: None. Disposition: Patient transferred to recovery room in good condition. Procedure In Detail: After intraoperative consultation was completed as above, patient was prepped a nd draped in the usual sterile fashion. I injected in the area of perineal abscess with 0.25% Marcai ne. I then injected the area with methylene blue and palpated and massaged the area to see if I coul d disperse the methylene blue to follow any fistulous connections that might be evident. At this poi nt, I inserted lubrication into the anus and inserted an anoscope at this point and inspected the are a. There was no evidence of fistulous connection at this time. I therefore used a somewhat larger a noscope to examine the rectum and anal tissue. No fistulous connections were appreciated. I palpate d the area inside the rectal vault and found no areas of thickening consistent with a fistulous conne ction or any other abnormal pathologic findings. At this point, I removed the anoscope and my portio n of the procedure was completed. Please see Dr. Last' note for full details regarding his aspect of the procedure. Patient tolerated the procedure well without evidence of complication from my aspect. Please see Dr. Last' note for continued operative note. LILIAN/ABRAHAM Voice ID: [id number] Report ID: [id number]
[2023-01-11] MEDS ORDERED: HYDROCODONE/APAP 5/325 MG TAB PO PRN (14:14)
[2023-01-11] MEDS ORDERED: HYDROCODONE/APAP 5/325 MG TAB ONE (14:57)
[2023-01-11 15:31] VITALS: BP 114/78; TEMP 97.3; O2SAT 96
--- NOTE | 2023-01-11 15:39 | OP ---
Surgeon: TUSHAR PITTS Preoperative Diagnosis: Perineal abscess. Postoperative Diagnosis: Perineal abscess. Principal Procedures: 1.Incision and drainage of perineal abscess. 2.Marsupialization of perineal abscess. 3.Additional surgical procedure performed by Dr. Ruslan Bates, to be dictated separately. Indication For Procedure: Mr. Alcocer is a 37-year-old gentleman with hidradenitis suppurativa lambert ng with some other medical comorbidities, who is morbidly obese and presents with persistent perineal abscess that previously had progressed to involve the inferior scrotum and was admitted with potenti al concerns for complicating infection that might progress to Donny disease. I assessed him as an outpatient via the emergency department, and no sign of Donny was present; however, his lack of r esponse to antimicrobials was notable. He was ultimately discharged from the hospital on a course of Bactrim where the scrotum significantly improved and the swelling of the prepuce and scrotum had sig nificantly decreased, but there was persistent drainage from a linear perineal abscess. As a result, despite weeks of antimicrobial, I recommended incision and drainage of the perineal abscess, and req uested Dr. Bates assist with anoscopy to rule out [id number]. Procedure In Detail: The patient was consented in the preoperative holding area before being transfe rred to the operative suite where general anesthesia was induced. He was placed in the high lithotom y position, padded and secured to the table appropriately, and pneumo boots were provided for DVT pro phylaxis. His perineum and scrotum were prepped using Betadine and draped in standard fashion, and Axel Bates began the procedure by injecting 0.5% Marcaine. He then utilized an Angiocath to inject m ethylene blue and then performed anoscopy to assess for [id number]. Please see his operative dic tation for the details of his procedure. Once he concluded the procedure and with no evidence of any [id number], I then took over and incised the area of abscess collection that extended about 4 cm in linear length within the left midline of the perineum. Subcutaneous fibrinous/granulation tissue was encountered along with some slight purulence that was mixed with the methylene blue that had pre viously been injected. The entirety of the abscess cavity was incised and opened, and given his morb id obesity and difficulty likely in being able to care for that area, once I excised any granulation tissue and ensured the abscess cavity was without separate cellules and cavities extending confirmed by manual/digital manipulation, I then marsupialized the entire area using 2-0 nylon suture to evan the edges and expose the area. Hemostasis was performed using electrocautery, then I applied iodofor m gauze to the entirety of the abscess cavity internal component before applying fluff gauze over it. This was secured in place using tape, and then the patient was taken out of the lithotomy position. He was then awakened from general anesthesia, transferred to a stretcher, and then transferred to [facility] recovery room in good condition. Complications: None. Discharge Disposition: I will leave the cavity marsupialized hopefully at least for the next 3-5 day s while the borders of the cavity began to granulate and close and heal. Meanwhile, I recommend andreia y sitz baths at least once if not twice a day with gauze applied to the area to continue to slightly debride it. After perhaps 5 days to 1 week, the sutures, if they successfully remain in place, may b e removed and the borders of the skin will be allowed to close and heal by secondary intention. He w ill continue with local wound care at that time using an iodoform dressing. He also will be recommen ded to perform a sitz bath after any and all bowel movements to avoid fecal igrish entering the area. ASCENCION/LUCYL Voice ID: [id number] Report ID: [id number]
== END 2023-01-11 15:20 | disposition home or self-care (01) ==
LOC: OR 10:54
PROVIDERS: ATTEND Urology
PROC: 0W9M0ZZ Drainage of Male Perineum, Open Approach (ICD-10-PCS; 2023-01-11)
PROC: 0DJD8ZZ Inspection of Lower Intestinal Tract, Via Natural or Artificial Opening Endoscopic (ICD-10-PCS; principal; 2023-01-11 14:15)
DX: L02.215 Cutaneous abscess of perineum (principal); L73.2 Hidradenitis suppurativa; E66.01 Morbid (severe) obesity due to excess calories; Z68.43 Body mass index [BMI] 50.0-59.9, adult
CPT/HCPCS: J1100; J1170; J1580; J2001; J2250; J2405; J2704; J3010; J7120